=== PATIENT | female | born 1975 | race Asian ===

== ENCOUNTER 2018-12-03 02:34 | Emergency (ER) | payer OTHER, MEDICAID ==
[~2018-12-03] VITALS: Ht 165.1 cm; Wt 54.4 kg
[2018-12-03] MEDS ORDERED: KETOROLAC TROMETHAMINE 60 MG INJ IM ONE ×2 (03:09→03:15)
--- NOTE | 2018-12-03 03:13 | NUR ---
Patient discharged to home in stable conditon. Written and verbal after care instructions given. Patient verbalizes understanding of instructions. Patient ambulated out of ER with stable gait. No adverse reactions to Toradol IM
[2018-12-03 03:14] VITALS: BP 121/82
[2018-12-03] MEDS ORDERED: VITAMINS (11:46)
[2018-12-03] MEDS ORDERED: SIME62.5 PO (11:46)
== END 2018-12-03 03:14 | disposition home or self-care (01) ==
LOC: ER 02:45
DX: M79.10 Myalgia, unspecified site (principal); M54.6 Pain in thoracic spine; M54.2 Cervicalgia; R51 Headache; E78.5 Hyperlipidemia, unspecified
CPT/HCPCS: 96372; 99283; J1885; A4663

== ENCOUNTER 2018-12-03 11:38 | Emergency (ER) | payer OTHER, MEDICAID ==
[~2018-12-03] VITALS: Ht 167.6 cm; Wt 54.4 kg
[2018-12-03] MEDS ORDERED: SIME62.5 PO (11:46)
[2018-12-03] MEDS ORDERED: VITAMINS (11:46)
[2018-12-03 12:16] LABS: BASOPHILS % (AUTO) 0.4 % (0.0-2.0); EOSINOPHILS # (AUTO) 0.1 K/uL (0.0-0.7); HEMATOCRIT 38.3 % (31.2-41.9); HEMOGLOBIN 12.7 g/dL (10.9-14.3); LYMPHOCYTES # (AUTO) 1.8 K/uL (20.0-40.0); LYMPHOCYTES % (AUTO) 29.4 % (20.5-51.5); MEAN CORPUSCULAR HEMOGLOBIN 31.1 uug (24.7-32.8); MEAN CORPUSCULAR HGB CONC 33 g/dL (32.3-35.6); MEAN CORPUSCULAR VOLUME 94.2 fL (75.5-95.3); MONOCYTES # (AUTO) 0.5 K/uL (2.0-10.0); MONOCYTES % (AUTO) 7.9 % (0.0-11.0); NEUTROPHILS # (AUTO) 3.7 K/uL (1.8-8.9); NEUTROPHILS % (AUTO) 61.3 % (38.5-71.5); PLATELET COUNT (AUTO) 254 K/uL (179-408); RED BLOOD CELL COUNT(AUTO) 4.07 MIL/uL (3.63-4.92)
[2018-12-03 12:23] LABS: CREATININE 0.7 mg/dL (0.6-1.3); POTASSIUM 4.2 mmol/L (3.5-5.1)
[2018-12-03 12:28] LABS: BILIRUBIN,DIRECT 0.1 mg/dL (0.0-0.2); BILIRUBIN,TOTAL 0.3 mg/dL (0.2-1.0); TOTAL PROTEIN, SERUM 7.3 g/dL (6.4-8.2)
[2018-12-03] MEDS ORDERED: ONDANSETRON ODT 4 MG TAB.RAPDIS SL ONE (12:45)
[2018-12-03] MEDS ORDERED: LIDOCAINE VISCUS 2% 15 ML UDC MM ONE (12:45)
[2018-12-03] MEDS ORDERED: MAG HYDROX/AL HYDROX/SIMETH 30 ML LIQUID UDC PO ONE (12:45)
[2018-12-03] MEDS ORDERED: FAMOTIDINE 20 MG TABLET PO ONE (12:45)
[2018-12-03] MEDS ORDERED: DICYCLOMINE HCL LIQ 10 MG/5 ML UDC PO ONE (12:45)
[2018-12-03] MEDS ORDERED: FAMOTIDINE 20 MG TABLET ONE (12:54)
[2018-12-03] MEDS ORDERED: ONDANSETRON ODT 4 MG TAB.RAPDIS ONE (12:54)
[2018-12-03] MEDS ORDERED: LIDOCAINE VISCUS 2% 15 ML UDC ONE (12:55)
[2018-12-03] MEDS ORDERED: DICYCLOMINE HCL LIQ 10 MG/5 ML UDC ONE (12:55)
[2018-12-03] MEDS ORDERED: MAG HYDROX/AL HYDROX/SIMETH 30 ML LIQUID UDC ONE (12:55)
--- NOTE | 2018-12-03 12:57 | NUR ---
PATIENT WAS SEEN BY MD. MEDICATIONS GIVEN ORDERED.
--- NOTE | 2018-12-03 13:55 | NUR ---
PATIENT STATES DISCOMFORT HAS DIMINISHED.
[2018-12-03 14:01] LABS: *BILIRUBIN,URIN NEGATIVE (NEGATIVE); *BLOOD, URINE NEGATIVE (NEGATIVE); *CLARITY,URINE CLEAR (CLEAR); *COLOR,URINE YELLOW (YELLOW); *KETONES,URINE NEGATIVE (NEGATIVE); *UROBILINOGEN,URINE 0.2 E.U./dl (NORMAL); LEUKOCYTE ESTERASE ,URINE NEGATIVE (NEGATIVE); NITRITE, URINE NEGATIVE (NEGATIVE); PH,URINE 7.5 (5.0-8.0); UGLUCOSE NEGATIVE (NEGATIVE)
[2018-12-03 14:03] LABS: *URINE HCG, QUAL NEGATIVE (NEGATIVE)
--- NOTE | 2018-12-03 14:11 | NUR ---
DC, RX AND FOLLOW UP INSTRUCTIONS GIVEN AND EXPLAINED TO PATIENT WHO STATES SHE UNDERSTANDS ALL INSTRUCTIONS.
== END 2018-12-03 14:12 | disposition home or self-care (01) ==
LOC: ER 11:38
DX: R10.32 Left lower quadrant pain (principal); R10.13 Epigastric pain; R11.0 Nausea; K21.9 Gastro-esophageal reflux disease without esophagitis; Z79.899 Other long term (current) drug therapy
CPT/HCPCS: 36415; 83690; 84703; 85025; 93005; A4663; Q0162

== ENCOUNTER 2020-10-26 17:11 | Emergency (ER) | payer MEDICAID, OTHER ==
[~2020-10-26] VITALS: Ht 167.6 cm; Wt 56.7 kg
[~2020-10-26 17:11] MED LIST: SIME62.5 PO; VITAMINS
[2020-10-26 18:46] LABS: *BILIRUBIN,URIN NEGATIVE (NEGATIVE); *BLOOD, URINE NEGATIVE (NEGATIVE); *CLARITY,URINE CLEAR (CLEAR); *COLOR,URINE YELLOW (YELLOW); *KETONES,URINE NEGATIVE (NEGATIVE); *UROBILINOGEN,URINE 0.2 E.U./dl (NORMAL); LEUKOCYTE ESTERASE ,URINE NEGATIVE (NEGATIVE); NITRITE, URINE NEGATIVE (NEGATIVE); UGLUCOSE NEGATIVE (NEGATIVE)
[2020-10-26 18:50] LABS: *URINE HCG, QUAL NEGATIVE (NEGATIVE)
--- NOTE | 2020-10-26 19:01 | NUR ---
PT IS IN ROOM #2A. DR GOLDEN EVALUATED THE PT.
[2020-10-26] MEDS ORDERED: ACETAMINOPHEN ES 500 MG TABLET PO ONE (19:15)
--- NOTE | 2020-10-26 19:15 | NUR ---
PATIENT OUT OF UNIT FOR CT SCAN VIA GURNY
--- NOTE | 2020-10-26 19:25 | NUR ---
PATIENT BACK FROM CT SCAN WITH NO DISTRESS NOTED.
[2020-10-26] MEDS ORDERED: ACETAMINOPHEN ES 500 MG TABLET ONE (19:38)
[2020-10-26 19:41] LABS: HEMATOCRIT 35.3 % (31.2-41.9); MEAN CORPUSCULAR HEMOGLOBIN 31.2 uug (24.7-32.8); MEAN CORPUSCULAR VOLUME 93.9 fL (75.5-95.3); PLATELET COUNT (AUTO) 239 K/uL (179-408)
[2020-10-26 19:48] LABS: MAGNESIUM 2.3 mg/dL (1.8-2.4); PHOSPHOROUS 3.5 mg/dL (2.5-4.9)
[2020-10-26 19:49] LABS: CARBON DIOXIDE 27 mmol/L (21-32); CHLORIDE 101 mmol/L (98-107); CREATININE 0.6 mg/dL (0.6-1.3); GLUCOSE 91 mg/dL (74-106); POTASSIUM 4.2 mmol/L (3.5-5.1); UREA NITROGEN, BLOOD 9 mg/dL (7-18)
[2020-10-26 19:54] LABS: ALANINE AMINOTRANSFERASE 15 U/L (14-59); ALKALINE PHOSPHATASE 53 U/L (50-136); ASPARTATE AMINOTRANSFERASE 12 U/L (15-37); BILIRUBIN,DIRECT < 0.1 mg/dL (0.0-0.2); BILIRUBIN,TOTAL 0.2 mg/dL (0.2-1.0); LIPASE 94 U/L (73-393)
[2020-10-26] MEDS ORDERED: IBUP-1955 PO (20:33)
--- NOTE | 2020-10-26 20:40 | NUR ---
Patient discharged to home in stable condition. Written and verbal after care instructions given. Patient verbalizes understanding of instructions. Stressed follow up or return to ER for worsening s/s.
[2020-10-26 21:25] VITALS: BP 110/68
[2020-10-26 23:09] LABS: *AMPHETAMINE, URINE NEGATIVE (NEGATIVE); *CANNABINOID, URINE NEGATIVE (NEGATIVE); *COCCAINE, URINE NEGATIVE (NEGATIVE); *OPIATE, URINE NEGATIVE (NEGATIVE); *PHENCYCLIDINE SCREEN,URINE NEGATIVE (NEGATIVE)
[2020-10-29 06:06] LABS: *GC NAA Negative (Negative); *TRIC.VAG. NAA Negative (Negative)
== END 2020-10-26 20:40 | disposition home or self-care (01) ==
LOC: ER 17:11
DX: E87.1 Hypo-osmolality and hyponatremia (principal); D25.9 Leiomyoma of uterus, unspecified; K59.00 Constipation, unspecified; K21.9 Gastro-esophageal reflux disease without esophagitis; Z11.3 Encounter for screening for infections with a predominantly sexual mode of transmission
CPT/HCPCS: 36415; 83690; 83735; 84100; 84703; 85025; 87491; 87806; A4663; A9150